=== PATIENT | male | born 1945 | race Caucasian/White ===

== ENCOUNTER 2018-07-23 13:29 | Day surgery (SDC) | payer OTHER ==
[2018-07-23 13:53] VITALS: BP 142/70
[2018-07-23] MEDS ORDERED: normal saline 1000ml 1,000 ML IV ONE (14:30)
[2018-07-23] MEDS ORDERED: iohexol 350 MG/ML 50ML vial IV ONE (15:09)
[2018-07-23] MEDS ORDERED: iohexol 350MG/ML 100ml bottle IV ONE (15:09)
[2018-07-23] MEDS ORDERED: CHOL50004 PO (15:18)
[2018-07-23] MEDS ORDERED: VERA240C3 PO (15:18)
[2018-07-23] MEDS ORDERED: VITAMIN B12 PO (15:18)
[2018-07-23] MEDS ORDERED: ALPR-624 PO (15:18)
[2018-07-23] MEDS ORDERED: POTA8CAP9 PO (15:18)
[2018-07-23] MEDS ORDERED: FEBU80TA PO (15:18)
[2018-07-23] MEDS ORDERED: FENO145T38 PO (15:18)
[2018-07-23] MEDS ORDERED: IMMODIUM (15:18)
[2018-07-23] MEDS ORDERED: ACEB400C PO (15:18)
[2018-07-23] MEDS ORDERED: DIPH1TAB PO (15:18)
[2018-07-23] MEDS ORDERED: HYDR100T27 PO (15:18)
[2018-07-23] MEDS ORDERED: FLUTICASONE (15:18)
[2018-07-23] MEDS ORDERED: CYCL-1 PO (15:18)
[2018-07-23] MEDS ORDERED: CHLO25TA10 PO (15:18)
[2018-07-23] MEDS ORDERED: OXYC-150 PO (15:18)
[2018-07-23] MEDS ORDERED: OXYB5TAB11 PO (15:18)
[2018-07-23] MEDS ORDERED: FURO-150 PO (15:18)
[2018-07-23] MEDS ORDERED: FERR325T28 PO (15:18)
[2018-07-23] MEDS ORDERED: normal saline 1000ml 1,000 ML IV SCH (15:30)
[2018-07-23 16:05] VITALS: BP 164/78
[2018-07-23 17:20] VITALS: BP 158/70
[2018-07-23 17:54] VITALS: BP 167/73
--- NOTE | 2018-07-23 18:00 | NUR ---
PT TRANSFERRED SELF TO [facility]. DENIES SOB, DENIES CP. PT STATES THIS IS HIS NORMAL ACTIVITY. MEDICATIONS ADMINISTERED ORDERED. PT EXITED UNIT BY W/C WITH ALL BELONGINGS.
== END 2018-07-23 18:00 | disposition home or self-care (01) ==
LOC: SSTAY O 13:29
PROVIDERS: ATTEND General Practice
DX: I70.203 Unspecified atherosclerosis of native arteries of extremities, bilateral legs (principal); I70.1 Atherosclerosis of renal artery; K57.30 Diverticulosis of large intestine without perforation or abscess without bleeding; K80.20 Calculus of gallbladder without cholecystitis without obstruction; N20.0 Calculus of kidney
CPT/HCPCS: 75635; J7030; Q9967